=== PATIENT | male | born 2000 | race Caucasian/White ===

== ENCOUNTER → 2021-12-15 | Emergency (ER) | payer BC ==
[~2021-12-15] VITALS: Ht 172.7 cm; Wt 85.0 kg
[~2021-12-15] MED LIST: IV NORMAL SALINE 1000ML BAG 1,000 ML IV ONE
--- NOTE | 2021-12-15 04:04 | PHYS DOC ---
Past Medical History Past Medical History: No Pertinent History Past Surgical History: No Surgical History Smoking Status: Never Smoker Alcohol Use: None Drug Use: None General Adult HPI: HPI: 21 yo M, no sig pmhx/pshx/allergies, pw 1.5 weeks of intermittent, daily, palpitations at rest. Came in today bc he felt lightheaded with the racing pal pitations and radiating of chest pain to his jaw. Feels better when he gets up and moves around. Denies smoking, alcohol, illicit drug use. Endorses daily 1 cup of coffee +/- monster energy drink. Works at [employer]. No recent psychosocial life stressors. No f/c/n/v/cough/sorethroat/sob/abd pain/urinary complaints. Endorses soft stool but no diego diarrhea or constipation. Endorses poor diet. Review of Systems: Review of Systems: Constitutional: Denies fever or chills. [] Eyes: Denies change in visual acuity. [] HENT: Denies nasal congestion or sore throat. [] Respiratory: Denies cough or shortness of breath. [] Cardiovascular: Denies chest pain or edema. [] +palpitations GI: Denies abdominal pain, nausea, vomiting, bloody stools or diarrhea. [] : Denies dysuria. [] Musculoskeletal: Denies back pain or joint pain. [] Integument: Denies rash. [] Neurologic: Denies headache, focal weakness or sensory changes. [] Endocrine: Denies polyuria or polydipsia. [] Lymphatic: Denies swollen glands. [] Psychiatric: Denies depression or anxiety. [] Heart Score: C/O Chest Pain: Yes HEART Score for Chest Pain: HEART Score for Chest Pain Response (Comments) Value History Slighlty/Non-Suspicious 0 ECG Normal 0 Age < 45 0 Risk Factors No Risk Factors 0 Total 0 Risk Factors: Risk Factors: DM, Current or recent (<one month) smoker, HTN, HLP, family history of CAD, obesity. Risk Scores: Score 0 - 3: 2.5% MACE over next 6 weeks - Discharge Home Score 4 - 6: 20.3% MACE over next 6 weeks - Admit for Clinical Observation Score 7 - 10: 72.7% MACE over next 6 weeks - Early Invasive Strategies Physical Exam: PE: Constitutional: Well developed, well nourished, no acute distress, non-toxic appearance. [] HENT: Normocephalic, atraumatic, bilateral external ears normal, oropharynx moist, no oral exudates, nose normal. [] Eyes: PERRLA, EOMI, conjunctiva normal, no discharge. [] Neck: Normal range of motion, no tenderness, supple, no stridor. [] Cardiovascular: sinus tachycardia, no murmur [] Lungs & Thorax: Bilateral breath sounds clear to auscultation [] Abdomen: Bowel sounds normal, soft, no tenderness, no masses, no pulsatile masses. [] Skin: Warm, dry, no erythema, no rash. [] Back: No tenderness, no CVA tenderness. [] Extremities: No tenderness, no cyanosis, no clubbing, ROM intact, no edema. [] Neurologic: Alert and oriented X 3, normal motor function, normal sensory function, no focal deficits noted. [] Psychologic: Affect normal, judgement normal, mood normal. [] EKG: EKG: [] Radiology/Procedures: Radiology/Procedures: [] Course & Med Decision Making: Course & Med Decision Making Pertinent Labs and Imaging studies reviewed. (See chart for details) Additional Social History: PMD from non-affiliated facility. Patient Lives at home. Family History: Non-pertinent to today's complaint. Nursing Notes Reviewed Previous Medical Records requested via [facility] [facility]: Reviewed by me. EMERGENT LABS AND DIAGNOSTIC STUDIES: Results were reviewed and interpreted by me as below CBC: Shows no evidence of leukocytosis or anemia. Platelet count is normal Chemistry: Shows no electrolyte abnormalities Otherwise within normal limits, unremarkable or as noted above. 12-lead EKG Interpretation by Robert Case MD: Sinus tachycardia 120 beats per minute Normal axis Normal intervals No ectopy No PVC No other acute ST or T wave abnormalities Overall impression is abnormal EKG PROCEDURE: PORTABLE CHEST 1V Impression: No evidence of an acute cardiopulmonary process. EMERGENCY DEPARTMENT COURSE/ MEDICAL DECISION MAKING: The patient was placed on a lunchroom monitor, continuous pulse oximetry and was given supplemental oxygen. I examined the patient, evaluated and addressed patient's chief complaint. Palpitations and sinus tachycardia. r/o metabolic derangements and infectious etiology, very low suspicion for ACS. Perc score 1. D-dimer neg. Labs largely unremarkable. Suspicious for combination of mild caffeine toxicity + poor sleep + anxiety. The patient was treated with IV fluids. On re-assessment, patient feels much better. Vitals normalized. Stable for dc home with routine pmd f/u. The patient understands that todays Emergency Department evaluation does not represent a comprehensive medical workup, and it is impossible to diagnose all possible illnesses from a single Emergency Department visit. The patient verbalized understanding that it is absolutely necessary to have follow-up with regular primary care physician within 1-2 days for more detailed workup and continued exam. I explained the findings and plan to the patient, who expressed verbal understanding and agreed with plan for discharge and follow up. The patient was given after care instructions and welcomed to return to the ED for re-evaluation in 8-12 hours, especially for any new or worsening symptoms. The patient was stable at the time of discharge. DIAGNOSTIC IMPRESSION: 1. palpitations 2. sinus tachycardia DISPOSITION: Disposition: Discharge Home. Condition: Improved Follow-Up: PMD Prescriptions: None Return to the Emergency Department for new or worsening symptoms. Juan Pablo Disclaimer: Juan Pablo Disclaimer: This electronic medical record was generated, in whole or in part, using a voice recognition dictation system. Departure Departure Impression: Primary Impression: Palpitations Additional Impression: Sinus tachycardia Disposition: HOME / SELF CARE / HOMELESS Condition: STABLE AGUSTIN CASE MD December 15, 2021 04:04
[2021-12-15 04:36] LABS: BASO # 0.1 x10^3/uL (0.0-0.2); BASO % 1 % (0-3); EOS # 0.2 x10^3/uL (0.0-0.7); EOS % 2 % (0-3); HEMATOCRIT 48.5 % (39.0-53.0); HEMOGLOBIN 16.7 g/dL (13.0-17.5); LYMPH # 3.8 x10^3/uL (1.0-4.8); LYMPH % 37 % (24-48); MEAN CORPUSCULAR HEMOGLOBIN 30 pg (25-35); MEAN CORPUSCULAR HGB CONC 34 g/dL (31-37); MEAN CORPUSCULAR VOLUME 89 fL (79-100); MONO % 10 % (0-9); NEUT # 5.3 x10^3/uL (1.8-7.7); NEUT % 51 % (31-73); PLATELET COUNT 334 x10^3/uL (140-400); RED BLOOD COUNT 5.48 x10^6/uL (4.30-5.70); RED CELL DISTRIBUTION WIDTH 13.4 % (11.5-14.5); WHITE BLOOD COUNT 10.4 x10^3/uL (4.0-11.0)
[2021-12-15 04:44] LABS: CALCIUM 9.9 mg/dL (8.5-10.1); CREATININE 1.2 mg/dL (0.7-1.3); GFR 77.2; POTASSIUM 3.9 mmol/L (3.5-5.1)
[2021-12-15 04:50] LABS: ALBUMIN 4.5 g/dL (3.4-5.0); ALBUMIN/GLOBULIN RATIO 1.3 (1.0-1.7); MAGNESIUM 2.3 mg/dL (1.8-2.4); TOTAL BILIRUBIN 0.7 mg/dL (0.2-1.0); TOTAL PROTEIN 8.1 g/dL (6.4-8.2)
[2021-12-15 05:02] LABS: FREE T4 1.14 ng/dL (0.76-1.46); THYROID STIM HORMONE (TSH) 4.564 uIU/mL (0.358-3.74)
--- NOTE | 2021-12-15 05:03 | RAD ---
XR CHEST 1V Clinical History: Reason: palpitations, chest pressure / Spl. Instructions: / History: Technique: AP view of the chest was obtained at 12/15/2021 4:34 AM. Comparison: None. Findings: The cardiomediastinal silhouette is normal. The pulmonary vasculature is normal. The lungs and pleura l margins are clear. Impression: No evidence of an acute cardiopulmonary process. Electronically signed by: Jairon Carlton III, MD (12/15/2021 5:00 AM) [facility]
[2021-12-15 05:45] VITALS: BP 122/74
--- NOTE | 2021-12-17 08:42 | EKG ---
[facility] [address] [place] [id number] Test Date: 2021-12-15 Test Time: 04:00:23 Pat Name: BIJAN BETHEA Department: Room: Gender: M [employer]: : 2000 Requested By: AGUSTIN GAMING Order Number: [id number] Reading MD: Salvador Perez MD Measurements Intervals Bryce Rate: 120 P: 47 NV: 120 QRS: 84 QRSD: 96 T: -4 QT: 288 QTc: 411 Interpretive Statements SINUS TACHYCARDIA NON-SPECIFIC ST/T CHANGES Electronically Signed On 12-17-2021 15:43:40 CDT by Salvador Perez MD
== END ==
LOC: ER 03:56
DX: R00.2 Palpitations (principal); R00.0 Tachycardia, unspecified; R07.89 Other chest pain; R42 Dizziness and giddiness
CPT/HCPCS: 36415; 71045; 80053; 83690; 83735; 84439; 84443; 84481; 85025; 85379; 93005; 96360; 99285; J7030